=== PATIENT | male | born 1955 | race African-American/Black ===

== ENCOUNTER 2017-01-31 20:20 | Emergency (ER) | payer OTHER ==
[2017-01-31 20:43] VITALS: TEMP 99; BMI 32.1
--- NOTE | 2017-01-31 21:15 | PDOC ---
History of Present Illness - General History Source: Patient Exam Limitations: No Limitations - History of Present Illness Initial Comments: 01/31/17 21:46 The patient is a 61 year old male with a significant past medical history of diabetes, HTN, MS s/p stent who presents to the ED s/p fall earlier today. The patient reports he was getting into his when he slipped and fell onto his right shoulder and right sided face onto concrete. Patient states his right shoulder pain is a 10/10 in severity and cannot lift his right arm secondary to pain. Patient also reports right sided facial swelling with pain. Denies loss of consciousness. Denies vision changes or change in mental status. Denies fever or chills. Denies any other symptoms. <Esteban Gillis - Last Filed: 01/31/17 22:00> <Eli Corona - Last Filed: 02/01/17 04:19> - General Chief Complaint: Injury Stated Complaint: RIGHT SHOULDER DISLOCATION, HEAD INJURY Time Seen by Provider: 01/31/17 20:30 Past History <Esteban Gillis - Last Filed: 01/31/17 22:00> - Past Medical History Cardiac Disorders: Yes (MS with stent 2012) COPD: No Diabetes: Yes (NIDDM) HTN: Yes Hypercholesterolemia: Yes - Surgical History Cardiac Surgery: Yes (STENT) - Suicide/Smoking/Psychosocial Hx Smoking History: Former smoker Have you smoked in the past 12 months: No If you are a former smoker, when did you quit?: 1986 Information on smoking cessation initiated: No Hx Alcohol Use: Yes (OCCASIONAL) Drug/Substance Use Hx: No Substance Use Type: None <Eli Corona - Last Filed: 02/01/17 04:19> - Past Medical History Allergies/Adverse Reactions: Allergies Allergy/AdvReac Type Severity Reaction Status Date / Time No Known Allergies Allergy Unverified 09/23/14 01:14 Home Medications: Ambulatory Orders Aspirin [ASA -] 81 mg PO DAILY tab.chew 09/23/14 Atorvastatin Ca [Lipitor] 40 mg PO HS tablet 09/23/14 Lisinopril [Prinivil] 5 mg PO DAILY tablet 09/23/14 Metoprolol Succinate [Toprol XL -] 25 mg PO DAILY tab.sr.24h 09/23/14 Nitroglycerin Sublingual [Nitrostat -] 0.4 mg SL Q5M PRN #0 tab 09/23/14 Amlodipine Besylate [Norvasc -] 5 mg PO DAILY 01/31/17 Metformin HCl [Metformin HCl ER] 1,000 mg PO BID 01/31/17 Amox-Tr/K Cl [Augmentin - 875Mg Tablet] 1 tab PO BID #14 tablet 02/01/17 Diclofenac Sodium [Voltaren -] 75 mg PO BID PRN #20 tablet. 02/01/17 Tramadol HCl/Acetaminophen [Ultracet Tablet] 1 each PO BID #10 tablet MDD 2 tabs 02/01/17 Review of Systems - Review of Systems Able to Perform ROS?: Yes Comments:: 01/31/17 21:46 CONSTITUTIONAL: No reported: Fever, Chills, Diaphoresis, Generalized Weakness, Malaise, Loss of Appetite HEENT: No reported: Rhinorrhea, Nasal Congestion, Throat Pain, Throat Swelling, Difficulty Swallowing, Mouth Swelling, Ear Pain, Eye Pain, Visual Changes CARDIOVASCULAR: No reported: Chest Pain, Syncope, Palpitations, Irregular Heart Rate, Lightheadedness, Peripheral Edema RESPIRATORY: No reported: Cough, Shortness of Breath, SOB with Exertion, Orthopnea, Wheezing , Stridor, Hemoptysis GASTROINTESTINAL: No reported: Abdominal pain, Abdominal Distension, Nausea, Vomiting, Diarrhea, Constipation, Melena, Hematochezia GENITOURINARY: No reported: Dysuria, Frequency, Urgency, Hesitancy, Flank Pain, Genital Pain MUSCULOSKELETAL: + shoulder pain No reported: Back pain, Neck Pain SKIN: + facial injury and facial swelling No reported: Rash, Itching, Pallor HEMEATOLOGIC/IMMUNOLOGIC: No reported: Easy Bleeding, Easy Bruising, Lymphadenopathy, Frequent infections ENDOCRINE: No reported: Unexplained Weight Gain, Unexplained Weight Loss, Heat Intolerance , Cold Intolerance NEUROLOGIC: No reported: Headache, Focal Weakness, Paresthesias, Vertigo, Lightheadedness, Unsteady Gait, Seizure, Mental Status Changes, Incontinence PSYCHIATRIC: No reported: Anxiety, Depression All Other Systems: Reviewed and Negative <Esteban Gillis - Last Filed: 01/31/17 22:00> *Physical Exam - Vital Signs Last Vital Signs Temp Pulse Resp BP Pulse Ox 99.0 F 87 16 183/102 98 01/31/17 20:29 01/31/17 20:29 01/31/17 20:29 01/31/17 20:29 01/31/17 20:29 - Physical Exam Comments: 01/31/17 21:47 GENERAL: The patient is awake, alert, and fully oriented, Nontoxic - in no acute distress. HEAD:+ Edema and tenderness of the right lateral and inferior periorbital region with 2 ml superficial abrasion just lateral to the canthus of the right eye, mild tenderness of the right mandibular angle without deformity or step off EYES: extraocular movements intact, sclera anicteric, conjunctiva clear. ENT: Normal voice, Moist mucous membranes. NECK: Normal range of motion, supple LUNGS: Breath sounds equal, clear to auscultation bilaterally. No wheezes, no rhonchi, no rales. HEART: Regular rate and rhythm, without murmur, rub or gallop. ABDOMEN: Soft, nontender, normoactive bowel sounds. No guarding, no rebound.No CVA tenderness EXTREMITIES: Right upper extremity showed deformity of the angle of the shoulder with moderate anterior prominence. marked pain on palpation of the proximal humerus and marked pain with any movement of shoulder joint. distal right upper extremity was without edema, deformity or tenderness. sensory and motor function intact distantly, radial pulses strongly palpable at the wrist. NEUROLOGICAL: No facial assymetry, Normal speech, PSYCH: Normal mood, normal affect. SKIN:. Warm, Dry, normal turgor, <Estbean Gillis - Last Filed: 01/31/17 22:00> - Vital Signs Last Vital Signs Temp Pulse Resp BP Pulse Ox 99.0 F 87 16 183/102 98 01/31/17 20:29 01/31/17 20:29 01/31/17 20:29 01/31/17 20:29 01/31/17 20:29 <Eli Corona - Last Filed: 02/01/17 04:19> Progress Note - Progress Note Progress Note: Documentation has been prepared under my direction and personally reviewed by me in its entirety. I attest that this documented accurately reflects all work, treatment, procedures and medical decision making performed by me. <Eli Corona - Last Filed: 02/01/17 04:19> Medical Decision Making - Medical Decision Making As noted above, this 61-year-old man with a history of coronary artery disease/ hypertension presents with mechanical fall: Slipped on wet pavement as he was getting out of his car, hitting the right side of his face and right shoulder against the pavement. There was no loss of consciousness the patient sustained bruising/small abrasion of the right upper face and an obviously deformed right shoulder. Exam as noted. Patient given 2 mg morphine IV for analgesia. Plain film of the right shoulder revealed a fracture /dislocation of the right shoulder. Since the patient is taking aspirin on a daily basis, noncontrast head CT along with facial CT and right shoulder CT were performed. Imaging studies preliminary interpretation by Imaging simonizer : Noncontrast head CT revealed no evidence of acute intracranial process or skull fracture. Facial CT showed acute minimally displaced fractures of the right lateral wall/ right superior lateral orbital rim/right maxillary sinus (lateral/medial/ anterior dale) CT of the right shoulder shows anterior dislocation of the right humeral head into the glenoid with large fieldfax defect of the humerus and comminuted Fracture of the greater tuberosity. There is also acute marked displaced fracture of the glenoid involving the anterior inferior and posterior aspects of the glenoid. Approximately 60% of glenoid articular surface remained intact. Patient does not have his own orthopedist ; [place] Dos Santos/Sharif our on-call. Above findings of fracture/dislocation of the right shoulder discussed with MINH Rubin, automotive parts person for the group. The shoulder can be reduced safely through usual methods. Fragments generally fall back into place after dislocation is reduced. First attempt at reduction used external rotation technique in usual manner. Although no audible or palpable "click" occurred, the patient states that he felt more comfortable after full external rotation achieved. Portable right shoulder x-ray revealed anterior dislocation persistent. Cardiovascular monitoring started and patient given 3 L/minute oxygen via nasal cannula. 2 mg midazolam IV administered for muscle relaxation. External rotation again used for primary reduction technique. This time, palpable subtle "click" felt; patient states that he felt that also. Portable right shoulder x-ray reveals reduction of the dislocation. Neurovascular functioning of the distal right upper extremity intact after reduction. Patient states that he is significantly more comfortable. Pulse oximetry, heart rate, blood pressure was also stable during the procedure. Sling applied to the right arm. Small (0.5 CM) partial-thickness laceration of the right lateral periorbital area cleansed thoroughly using sterile normal saline. Small amount of Dermabond applied to the area with good closure of skin edges. Patient is unclear when his last tetanus prophylaxis was given: Boostrix will be administered. Because patient has right maxillary sinus fracture, Augmentin 875/125 twice a day for a week will be started with first dose given here in the emergency room Patient is awake and alert without complaints. He will be discharged with instructions to follow-up with Drs. Dos Santos/Sharif for orthopedic care, Dr. Blair for facial fracture follow-up appointment and his own general doctor. <Eli Corona - Last Filed: 02/01/17 04:19> *DC/Admit/Observation/Transfer - Attestations Scribe Attestion: 01/31/17 21:47 Documentation prepared by Esteban Gillis, acting as mobile paramedical examiner for Eli Corona MD <Esteban Gillis - Last Filed: 01/31/17 22:00> <Eli Corona - Last Filed: 02/01/17 04:19> Diagnosis at time of Disposition: Fracture of right orbital wall Shoulder dislocation Qualifiers: Encounter type: initial encounter Laterality: right Qualified Code(s): S43.004A - Unspecified dislocation of right shoulder joint, initial encounter Maxillary sinus fracture Qualifiers: Encounter type: initial encounter Fracture type: closed Qualified Code(s): S02.401A - Maxillary fracture, unspecified side, initial encounter for closed fracture - Discharge Dispostion Disposition: HOME Condition at time of disposition: Stable - Prescriptions Prescriptions: Amox-Tr/K Cl [Augmentin - 875Mg Tablet] 1 tab PO BID #14 tablet Diclofenac Sodium [Voltaren -] 75 mg PO BID PRN #[address] GILL Reason: Moderate Pain Tramadol HCl/Acetaminophen [Ultracet Tablet] 1 each PO BID #10 tablet MDD 2 tabs - Referrals Referrals: Sonia Song MD [Primary Care Provider] - Saulo Olguin MD [Staff Physician] - 3 days Chente Blair MD [Staff Physician] - 1 week - Patient Instructions Printed Discharge Instructions: Shoulder Dislocation, DI for Orbital Fracture Additional Instructions: Keep head elevated on extra pillow at night for the next 2 days Tylenol/Motrin/Aleve as needed for mild pain Diclofenac 75 mg twice a day as needed for moderate pain (take with food) Ultracet up to twice a day as needed for severe pain (may make you sleepy) Augmentin 875/125 twice a day for one week-take with food(antibiotic to prevent sinus infection) Follow-up with orthopedist (Dr. Olguin/Dr. Dos Santos) within 2-3 days Follow-up with plastic surgeon(Dr. Blair) within 7-10 days Return to ER if you have change in vision, swelling or increased pain in your face - Post Discharge Activity
[2017-01-31] MEDS ORDERED: morphine CARPU-JECT 2 MG/1 ML DISP.SYRIN IM ONE (22:42)
[2017-01-31] MEDS ORDERED: morphine CARPU-JECT 2 MG/1 ML DISP.SYRIN IVPUSH ONE (22:55)
[2017-01-31] MEDS ORDERED: morphine CARPU-JECT 2 MG/1 ML DISP.SYRIN ONE (22:55)
[2017-02-01] MEDS ORDERED: MIDAZOLAM HCL 2 MG/2 ML SINGLE DOSE VIAL ONE (01:13)
[2017-02-01] MEDS ORDERED: MIDAZOLAM HCL 2 MG/2 ML SINGLE DOSE VIAL IVPUSH ONE (01:58)
[2017-02-01] MEDS ORDERED: AMOX TR/POT CLAV 875MG/125MG TABLETS (FP) PO ONE (02:10)
[2017-02-01] MEDS ORDERED: DIPHTH,PERTUSS(ACELL),TET 0.5 ML DISP.SYRIN IM ONE (02:10)
[2017-02-01] MEDS ORDERED: AMOX TR/POT CLAV 875MG/125MG TABLETS (FP) ONE (02:14)
[2017-02-01 02:31] VITALS: BP 166/97; PULSE 93
== END 2017-02-01 02:36 | disposition home or self-care (01) ==
LOC: FER 20:20
PROC: 0RSJXZZ Reposition Right Shoulder Joint, External Approach (ICD-10-PCS; principal; 2017-01-31)
PROC: 0HQ1XZZ Repair Face Skin, External Approach (ICD-10-PCS; 2017-01-31)
PROC: 3E0234Z Introduction of Serum, Toxoid and Vaccine into Muscle, Percutaneous Approach (ICD-10-PCS; 2017-01-31)
DX: S43.004A Unspecified dislocation of right shoulder joint, initial encounter (principal); S02.401A Maxillary fracture, unspecified side, initial encounter for closed fracture; S02.32XA Fracture of orbital floor, left side, initial encounter for closed fracture; S01.111A Laceration without foreign body of right eyelid and periocular area, initial encounter; V48.4XXA Person boarding or alighting a car injured in noncollision transport accident, initial encounter; W01.0XXA Fall on same level from slipping, tripping and stumbling without subsequent striking against object, initial encounter; Y93.89 Activity, other specified; Y92.9 Unspecified place or not applicable
CPT/HCPCS: 70450-TC; 70486-TC; 73030-TC-RT; 73200-TC-RT; 90715; 99282-25

== ENCOUNTER 2017-10-12 15:19 | Emergency (ER) | payer OTHER ==
[2017-10-12 15:29] VITALS: BMI 29.5
--- NOTE | 2017-10-12 15:32 | PDOC ---
History of Present Illness - General History Source: Patient Exam Limitations: No Limitations - History of Present Illness Initial Comments: 10/12/17 17:33 The patient is a 61 year old male, with a significant past medical history of diabetes, HTN, [place] s/p stent, who presents to the emergency department with, 1 week of worsening weakness. Today, he reports unsteady gait when standing up. He describes it as falling backwards and as if he is on a boat. He reports associated tinnitus after driving. He denies any recent fevers, chills, or headache. He denies any recent nausea, vomit, diarrhea or constipation. He denies any recent chest pain or shortness of breath. He denies any recent dysuria, frequency, urgency or hematuria. Allergies: NKA Past surgical history: Cardiac stent. Social History: Former smoker (Quit 1986). Denies EtOH use and recreational drug use. Primary Care Physician: Dr. Song <Jeremy Cole - Last Filed: 10/12/17 18:18> <Karis Johns - Last Filed: 10/12/17 19:01> - General Chief Complaint: Weakness Stated Complaint: HYPERTENSIVE Time Seen by Provider: 10/12/17 15:32 Past History <Jeremy Cole - Last Filed: 10/12/17 18:18> - Past Medical History Cardiac Disorders: Yes (GA with stent 2012) COPD: No Diabetes: Yes (NIDDM) HTN: Yes Hypercholesterolemia: Yes - Surgical History Cardiac Surgery: Yes (STENT) - Suicide/Smoking/Psychosocial Hx Smoking History: Former smoker Have you smoked in the past 12 months: No If you are a former smoker, when did you quit?: 1986 Information on smoking cessation initiated: No Hx Alcohol Use: Yes (OCCASIONAL) Drug/Substance Use Hx: No Substance Use Type: None <Karis Johns - Last Filed: 10/12/17 19:01> - Past Medical History Allergies/Adverse Reactions: Allergies Allergy/AdvReac Type Severity Reaction Status Date / Time No Known Allergies Allergy Unverified 09/23/14 01:14 Home Medications: Ambulatory Orders Aspirin [ASA -] 81 mg PO DAILY 10/12/17 Glipizide [Glipizide ER] 5 mg PO BID 10/12/17 Linagliptin [Tradjenta] 5 mg PO DAILY 10/12/17 Lisinopril [Zestril] 40 mg PO DAILY 10/12/17 Metoprolol Succinate 25 mg PO DAILY 10/12/17 metFORMIN HCL [Metformin HCl] 1,000 mg PO BID 10/12/17 Review of Systems - Review of Systems Able to Perform ROS?: Yes Comments:: 10/12/17 17:33 +GENERAL/CONSTITUTIONAL: Weakness. No fever or chills. HEAD, EYES, EARS, NOSE AND THROAT: No change in vision. No ear pain or discharge. No sore throat. CARDIOVASCULAR: No chest pain or shortness of breath. RESPIRATORY: No cough, wheezing, or hemoptysis. GASTROINTESTINAL: No nausea, vomiting, diarrhea or constipation. GENITOURINARY: No dysuria, frequency, or change in urination. MUSCULOSKELETAL: No joint or muscle swelling or pain. No neck or back pain. SKIN: No rash +NEUROLOGIC: Vertigo. Abnormal gait. No headache, loss of consciousness, or change in strength/sensation. ENDOCRINE: No increased thirst. No abnormal weight change. HEMATOLOGIC/LYMPHATIC: No anemia, easy bleeding, or history of blood clots. ALLERGIC/IMMUNOLOGIC: No hives or skin allergy. All Other Systems: Reviewed and Negative <Jeremy Cole - Last Filed: 10/12/17 18:18> *Physical Exam - Vital Signs Last Vital Signs Temp Pulse Resp BP Pulse Ox 98.4 F 89 18 165/94 97 10/12/17 15:27 10/12/17 15:27 10/12/17 15:27 10/12/17 15:27 10/12/17 15:27 - Physical Exam Comments: 10/12/17 17:33 GENERAL: Awake, alert, and fully oriented, in no acute distress HEAD: No signs of trauma EYES: PERRLA, EOMI, sclera anicteric, conjunctiva clear ENT: Auricles normal inspection, hearing grossly normal, nares patent, oropharynx clear without exudates. Moist mucosa NECK: Normal ROM, supple, no lymphadenopathy, JVD, or masses LUNGS: Breath sounds equal, clear to auscultation bilaterally. No wheezes, and no crackles HEART: Regular rate and rhythm, normal S1 and S2, no murmurs, rubs or gallops ABDOMEN: Soft, nontender, normoactive bowel sounds. No guarding, no rebound. No masses EXTREMITIES: Normal range of motion, no edema. No clubbing or cyanosis. No cords, erythema, or tenderness +NEUROLOGICAL: Unsteady gait. Cranial nerves II through XII grossly intact. Normal speech. SKIN: Warm, Dry, normal turgor, no rashes or lesions noted. <Jeremy Cole - Last Filed: 10/12/17 18:18> - Vital Signs Last Vital Signs Temp Pulse Resp BP Pulse Ox 98.4 F 89 18 165/94 97 10/12/17 15:27 10/12/17 15:27 10/12/17 15:27 10/12/17 15:27 10/12/17 15:27 <Karis Johns - Last Filed: 10/12/17 19:01> ED Treatment Course - LABORATORY CBC & Chemistry Diagram: 10/12/17 16:23 10/12/17 16:23 <Jeremy Cole - Last Filed: 10/12/17 18:18> - LABORATORY CBC & Chemistry Diagram: 10/12/17 16:23 10/12/17 16:23 <Karis Johns - Last Filed: 10/12/17 19:01> Medical Decision Making - Medical Decision Making 10/12/17 17:[address] Joey Hernandez, neurosurgeon compensation coordinator, awaiting call back. 10/12/17 17:50 Call placed to [facility] for neurosurgery transfer, case discussed and accepted with Dr. Young. Transfer ETA 30 minutes. 10/12/17 18:[address] Joey Hernandez, case was discussed. <Jeremy Cole - Last Filed: 10/12/17 18:18> - Critical Care Time Total Critical Care Time (minutes): 45 Critical Care Statement: The care of this patient involved high complexity decision making to prevent further life threatening deterioration of the patient 's condition and/or to evaluate & treat vital organ system(s) failure or risk of failure. - Medical Decision Making 10/12/17 17:07 Pt presents to the ED complaining of gait unsteadiness that began two days ago. Patient complains of vertigo and is unable to ambulate in the ED. Concern for posterior CVA, less likely intracranial mass, schwannoma, mennieure's disease. Will check labs and CT head, likely obs admission for MRI. 10/12/17 17:36 CT shows large subacute subdural with midline shift. Patient remains awake, alert and oriented x 3 and neurologically intact. Call to Dr. Hernandez--if I have not heard from Dr. Hernandez within 15 minutes, will transfer patient to [facility]. <Karis Johns - Last Filed: 10/12/17 19:01> *DC/Admit/Observation/Transfer - Attestations Scribe Attestion: 10/12/17 17:33 Documentation prepared by Jeremy Cole, acting as territory sales manager medical for Karis Johns MD. <Jeremy Cole - Last Filed: 10/12/17 18:18> - Discharge Dispostion Decision to Admit order: No <Karis Johns - Last Filed: 10/12/17 19:01> Diagnosis at time of Disposition: Subdural hematoma - Discharge Dispostion Disposition: TRANSFER ACUTE CARE/OTHER HOSP Condition at time of disposition: Stable - Referrals Referrals: Sonia Song MD [Primary Care Provider] -
[2017-10-12] MEDS ORDERED: levETIRAcetam 500 MG/5 ML INJECTION VIAL IVPB ONE ×2 (17:56→18:00)
[2017-10-12 18:08] LABS: BASO % 0.7 % (0-2.0); EOS % 0.6 % (0-4.5); HEMATOCRIT 36.4 % (35.4-49); HEMOGLOBIN 12.2 GM/dL (11.7-16.9); LYMPH % 12.7 % (8-40); MCH 32.3 pg (25.7-33.7); MCHC 33.5 g/dl (32.0-35.9); MEAN CELL VOLUME 96.5 fl (80-96); MEAN PLT VOLUME 9.2 fl (7.5-11.1); MONO % 6.9 % (3.8-10.2); NEUT % 79.1 % (42.8-82.8); PLATELET COUNT 248 K/MM3 (134-434); RBC 3.77 M/mm3 (4.00-5.60); RDW 14.6 % (11.9-15.9)
[2017-10-12 18:29] LABS: ALBUMIN 3.8 g/dl (3.4-5.0); ANION GAP 7 (8-16); BILIRUBIN,TOTAL 0.7 mg/dL (0.2-1.0); BLOOD UREA NITROGEN 14 mg/dL (7-18); CALCIUM 9.2 mg/dL (8.5-10.1); CHLORIDE 106 mmol/L (98-107); CO2 29 mmol/L (21-32); GLUCOSE,RANDOM 166 mg/dL (74-106); SGPT/ALT 27 U/L (12-78); SODIUM 142 mmol/L (136-145); TOT PROT 7.3 g/dl (6.4-8.2)
[2017-10-12 18:30] LABS: ALK PHOS 87 U/L (45-117)
[2017-10-12 18:34] VITALS: BP 164/104; PULSE 88; TEMP 97.9
[2017-10-12 18:40] LABS: POTASSIUM 4.5 mmol/L (3.5-5.1); SGOT/AST 21 U/L (15-37)
[2017-10-12] MEDS ORDERED: NICARDIPINE 25 MG in DEXTROSE 5%-WATER - 240 ML IVPB SCH (18:45)
[2017-10-12 18:48] LABS: INR 1.11 (0.83-1.09); PROTHROMBIN TIME (PATIENT) 12.5 SEC (9.7-13.0)
[2017-10-12 18:51] LABS: ACTIVATED PTT 25.9 SECONDS (25.2-36.5)
--- NOTE | 2017-10-13 17:02 | EKG ---
Test Reason : Blood Pressure : / mmHG Vent. Rate : 075 BPM Atrial Rate : 075 BPM P-R Int : 138 ms QRS Dur : 088 ms QT Int : 352 ms P-R-T Axes : 018 017 069 degrees QTc Int : 393 ms SINUS RHYTHM WITH PREMATURE VENTRICULAR COMPLEXES OR FUSION COMPLEXES NONSPECIFIC T WAVE ABNORMALITY ABNORMAL ECG Confirmed by MD SCOUT, SAEED ([id number]) on 10/13/2017 5:02:03 PM Referred By: Confirmed By:SAEED BUTTERFIELD MD
--- NOTE | 2017-10-14 11:18 | EKG ---
Test Reason : Blood Pressure : / mmHG Vent. Rate : 086 BPM Atrial Rate : 086 BPM P-R Int : 136 ms QRS Dur : 090 ms QT Int : 348 ms P-R-T Axes : 045 037 069 degrees QTc Int : 416 ms NORMAL SINUS RHYTHM POSSIBLE LEFT ATRIAL ENLARGEMENT NONSPECIFIC T WAVE ABNORMALITY ABNORMAL ECG NO PREVIOUS ECGS AVAILABLE Confirmed by DIANA MNEDOZA, OTTO ([id number]) on 10/14/2017 11:17:56 AM Referred By: Confirmed By:OTTO ORTIZ MD
== END 2017-10-12 18:52 | disposition short-term general hospital (02) ==
LOC: JER 15:19
PROC: 3E033GC Introduction of Other Therapeutic Substance into Peripheral Vein, Percutaneous Approach (ICD-10-PCS; principal; 2017-10-12)
DX: I62.02 Nontraumatic subacute subdural hemorrhage (principal); I10 Essential (primary) hypertension; I25.2 Old myocardial infarction; I25.10 Atherosclerotic heart disease of native coronary artery without angina pectoris; Z95.5 Presence of coronary angioplasty implant and graft; E11.9 Type 2 diabetes mellitus without complications; Z79.84 Long term (current) use of oral hypoglycemic drugs
CPT/HCPCS: 36415; 70450-TC; 80053; 85025; 85610; 85730; 86850; 86900; 86901; 93005; 93010; 99285-25

== ENCOUNTER 2020-09-19 16:15 | Emergency (ER) | payer OTHER ==
[2020-09-19 16:36] VITALS: BP 114/67; PULSE 80; TEMP 98.9; BMI 30.8
== END 2020-09-19 19:23 | disposition home or self-care (01) ==
LOC: FER 16:15
PROC: 2W3MX1Z Immobilization of Left Lower Extremity using Splint (ICD-10-PCS; principal; 2020-09-19)
DX: S82.892A Other fracture of left lower leg, initial encounter for closed fracture (principal)
CPT/HCPCS: 73610-TC-LT-FY; 73630-TC-LT; 99283-25

== ENCOUNTER 2020-10-04 08:25 | Day surgery (SDC) | payer OTHER ==
[2020-10-01 16:50] VITALS: BMI 30.8
[2020-10-04] MEDS ORDERED: MIDAZOLAM HCL 2 MG/2 ML SINGLE DOSE VIAL ONE (09:16)
[2020-10-04] MEDS ORDERED: BUPIVACAINE HCL/PF 0.5% (5MG/ML) 10 ML VIAL ONE ×2 (09:36→10:16)
[2020-10-04] MEDS ORDERED: BUPIVACAINE LIPOSOME/PF (EXPAREL) 266 MG/20 ML VIAL ONE (09:36)
[2020-10-04] MEDS ORDERED: ceFAZolin SODIUM 1 GM VIAL ONE (10:38)
[2020-10-04] MEDS ORDERED: ONDANSETRON 4 MG/2 ML VIAL ONE (10:57)
[2020-10-04] MEDS ORDERED: DEXAMETHASONE SOD PHOSPHATE 4 MG/1 ML VIAL ONE (10:57)
[2020-10-04] MEDS ORDERED: ONDANSETRON 4 MG/2 ML VIAL IVPUSH PRN (12:43)
[2020-10-04] MEDS ORDERED: oxyCODONE HCL 5 MG TABLET PO PRN (12:43)
[2020-10-04] MEDS ORDERED: LACTATED RINGERS SOLUTION 1,000 ML IV SCH (12:45)
[2020-10-04 16:06] VITALS: BP 156/82; PULSE 75; TEMP 98
== END 2020-10-04 16:05 | disposition home or self-care (01) ==
LOC: FASU 08:25
PROVIDERS: ATTEND Orthopaedic Surgery Sports Medicine
PROC: 0SSG0ZZ Reposition Left Ankle Joint, Open Approach (ICD-10-PCS; 2020-10-04)
PROC: 0QSK04Z Reposition Left Fibula with Internal Fixation Device, Open Approach (ICD-10-PCS; principal; 2020-10-04 10:48)
DX: S82.62XA Displaced fracture of lateral malleolus of left fibula, initial encounter for closed fracture (principal); S93.432A Sprain of tibiofibular ligament of left ankle, initial encounter; X58.XXXA Exposure to other specified factors, initial encounter; Y93.9 Activity, unspecified; Y92.9 Unspecified place or not applicable
CPT/HCPCS: 27792; 27829; C1713; 73610-TC-LT-FY; 82962; 94760